=== PATIENT | male | born 1960 ===

== ENCOUNTER 2024-12-24 11:30 | Day surgery (SDC) | payer OTHER ==
[~2024-12-24] VITALS: Ht 177.8 cm; Wt 100.6 kg
[~2024-12-24 11:30] MED LIST: Balanced Salt Epinephrine Irrigation Solution 500 mL IR SCH; Lidocaine HCl/Pf 1% 5 ML VIAL XX SCH; Moxifloxacin HCL 0.5 MG/0.1 ML 0.4MLSYR LEFTEYE SCH; PHENYLEPHRINE\\TROPICAMIDE\\TETRACAINE OPHTHALMIC DILATING SOLN LEFTEYE PRN; Povidone-Iodine 450 DROP/30 ML Solution LEFTEYE SCH; Povidone-Iodine 450 DROP/30 ML Solution ONE; Tetracaine HCl/Pf 0.5% Opth Soln 4 ml ONE; Triamcinolone Inj Susp 40 MG / ML 1ML Vial INJ SCH; Triamcinolone Inj Susp 40 MG / ML 1ML Vial ONE; Tropicamide 1% Opth Soln 15 ML BTL ONE
[2024-12-24] MEDS ORDERED: HYDCHL25 PO (12:14)
[2024-12-24] MEDS ORDERED: ALBUTEROL HFA 90 MCG (12:14)
[2024-12-24] MEDS ORDERED: INCRUSE ELLIPTA 62.5 (12:15)
[2024-12-24] MEDS ORDERED: AMLODIPINE BES2.5 MG PO (12:16)
[2024-12-24] MEDS ORDERED: OZEMPIC1 MG/0.72 SC (12:16)
[2024-12-24] MEDS ORDERED: ATOR40TA PO (12:17)
[2024-12-24] MEDS ORDERED: LISI20 PO (12:17)
[2024-12-24] MEDS ORDERED: NS 500 ML IV ONE ×2 (12:26→12:28)
--- NOTE | 2024-12-24 12:31 | NUR ---
12/24/24 1231 Morenita Sanchez TETRACAJOSE ALBERTO [address]
[2024-12-24] MEDS ORDERED: Midazolam HCl 1MG / ML 2ML Vial ONE ×2 (12:53→12:56)
[2024-12-24] MEDS ORDERED: FentaNYL Citrate 50 MCG/ML 2 ML Injection ONE (12:53)
== END 2024-12-24 13:47 | disposition home or self-care (01) ==
LOC: ORSCSDS 11:30
PROVIDERS: Ophthalmology
PROC: 08RK3JZ Replacement of Left Lens with Synthetic Substitute, Percutaneous Approach (ICD-10-PCS; principal; 2024-12-24 13:30)
DX: E11.36 Type 2 diabetes mellitus with diabetic cataract (principal); H52.202 Unspecified astigmatism, left eye; H25.813 Combined forms of age-related cataract, bilateral; H35.30 Unspecified macular degeneration; I10 Essential (primary) hypertension; K21.9 Gastro-esophageal reflux disease without esophagitis; Z87.891 Personal history of nicotine dependence; Z79.899 Other long term (current) drug therapy
CPT/HCPCS: 82947; J2250; J3010; J3301; J7040; V2632